=== PATIENT | female | born 1945 | race Caucasian/White ===

== ENCOUNTER → 2017-05-04 | Day surgery (SDC) | payer MEDICARE ==
[~2017-05-04] MED LIST: ALEV220T14 PO; ALPR0.25 PO; BUPIVACAINE HCL PF 0.5% 30 ML VIAL ONE; LEVO.075 PO; LEXA20TA PO; MONT10TA2 PO; PROPOFOL 200 MG/20 ML AMP IV ONE; TRIAMCINOLONE ACETONIDE 40 MG/ML VIAL I-ARTICULR ONE; methylPREDNISolone ACETATE 40 MG/ML VIAL I-ARTICULR ONE
--- NOTE | 2017-05-04 15:34 | M6 ---
cc: GEORGETTE BARTLETT M.D. DATE: 05/04/2017 DATE OF : 1945 PROCEDURE Fluoroscopically guided right sacroiliac joint injection. PROCEDURE NOTE History and physical was completed and signed. Consent was signed. Procedure site was marked. Medications were listed and reconciled. Pain score was recorded. Allergies were noted. Timeout was taken. Fluoroscopy time was recorded where applicable. Sedation was administered or directed by Dr. Bartlett. The patient was given oxygen. The patient was monitored by a registered nurse. Total procedure time was greater than 15 minutes. An IV was started, blood pressure cuff, pulse oximeter and EKG were applied. The patient was placed in the prone position on a Harsh table, sedated with small amounts of propofol titrated to effect. Vital signs were monitored and remained stable throughout the procedure. The sacral area was prepped with alcohol and 10% Betadine solution, draped with sterile drapes. Fluoroscopy was used shooting from medial to lateral to clearly visualize the posterior joint line of the right sacroiliac joint. A sterile 22-gauge, 5-inch needle was advanced into the joint under fluoroscopic guidance. There was negative aspiration for blood or any other type of fluid and the patient was given 2 mL of 0.5% Marcaine, 20 mg of Depo-Medrol, 20 mg of Kenalog. Following the procedure the patient was taken to the recovery room with stable vital signs, neurologically intact. She will be evaluated immediately and with follow-up to determine if she has a subjective decrease in her usual pain and a corresponding objective increase in her functional capabilities. W. MD ADRIANA Vernon/ARIANA /10:12 AM /3:31 PM
== END | disposition home or self-care (01) ==
LOC: PHSDC 08:08
PROVIDERS: ATTEND Pain Medicine Interventional Pain Medicine
DX: M12.88 Other specific arthropathies, not elsewhere classified, other specified site (principal); M54.16 Radiculopathy, lumbar region; F32.9 Major depressive disorder, single episode, unspecified; F41.9 Anxiety disorder, unspecified; J45.909 Unspecified asthma, uncomplicated; Z85.850 Personal history of malignant neoplasm of thyroid
CPT/HCPCS: 99152; G0260; J1030; J3301; 27096

== ENCOUNTER → 2017-10-04 | Day surgery (SDC) | payer MEDICARE ==
[~2017-10-04] MED LIST changes: -BUPIVACAINE HCL PF 0.5% 30 ML VIAL ONE; +LIOT50 PO; +MEPERIDINE HCL 25 MG/ML VIAL IV ONE; +SODIUM CHLORIDE 0.9% 10 ML VIAL ONE; +TEMA15CA PO; -TRIAMCINOLONE ACETONIDE 40 MG/ML VIAL I-ARTICULR ONE; +VIVE0.05 T-DERMAL; -methylPREDNISolone ACETATE 40 MG/ML VIAL I-ARTICULR ONE
--- NOTE | 2017-10-04 10:25 | M6 ---
cc: GEORGETTE BARTLETT M.D. DATE 10/04/2017 DATE OF 1945 PROCEDURE Fluoroscopically guided injection neurolytic substance right sacroiliac joint (3% phenol). PROCEDURE NOTE History and physical was completed and signed. Consent was signed. Procedure site was marked. Medications were listed and reconciled. Pain score was recorded. Allergies were noted. Time out was taken. Fluoroscopy time was recorded where applicable. Sedation was administered or directed by Dr. Bartlett. The patient was given oxygen. The patient was monitored by a registered nurse. Total procedure time was greater than 15 minutes. IV was started, blood pressure cuff, pulse oximeter and EKG were applied. The patient was placed in the prone position on a Harsh table sedated with small amounts of propofol titrated to effect. Vital signs were monitored and remained stable throughout the procedure. The sacral area was prepped with alcohol and 10% Betadine solution and draped with sterile drapes. Fluoroscopy was used shooting from medial to lateral to clearly visualize the posterior joint line of the right sacroiliac joint. A sterile 5-inch 22-gauge spinal needle was advanced into the joint under fluoroscopic guidance. There was negative aspiration for blood or any other type of fluid and the patient was given 1 mL of 3% phenol. Following this, the patient was taken to the recovery room with stable vital signs neurologically intact. She will be evaluated immediately and with followup to determine if she has a subjective decrease in the usual pain and a corresponding objective increase in her functional capabilities. W. MD ADRIANA Vernon/PEGGY /10:17 AM /10:21 AM
== END | disposition home or self-care (01) ==
LOC: PHSDC 08:20
PROVIDERS: ATTEND Pain Medicine Interventional Pain Medicine
DX: M54.5 Low back pain (principal)
CPT/HCPCS: 64640; 99152; J2175

== ENCOUNTER → 2017-10-11 | Day surgery (SDC) | payer MEDICARE ==
--- NOTE | 2017-10-11 10:47 | M6 ---
cc: GEORGETTE BARTLETT M.D. DATE: 10/11/2017 DATE OF : 1945 PROCEDURE Fluoroscopically guided injection neurolytic substance right sacroiliac joint (3% Phenol). PROCEDURE NOTE History and physical was completed and signed. Consent was signed. Procedure site was marked. Medications were listed and reconciled. Pain score was recorded. Allergies were noted. Timeout was taken. Fluoroscopy time was recorded where applicable. Sedation was administered or directed by Dr. Bartlett. The patient was given oxygen. The patient was monitored by a registered nurse. Total procedure time was greater than 15 minutes. An IV was started, blood pressure cuff, pulse oximeter and EKG were applied. The patient was placed in the prone position on a Harsh table, sedated with small amounts of propofol titrated to effect. Vital signs were monitored and remained stable throughout the procedure. The sacral area was prepped with alcohol and 10% Betadine solution, draped with sterile drapes. Fluoroscopy was used shooting from medial to lateral to clearly visualize the posterior joint line of the right sacroiliac joint. A sterile 5-inch, 22-gauge spinal needle was advanced into the joint under fluoroscopic guidance. There was negative aspiration for blood or any other type of fluid and the patient was given 1 mL of 3% Phenol. Following this the patient was taken to the recovery room with stable vital signs, neurologically intact. She will be evaluated immediately and with follow-up to determine if she has a subjective decrease in her usual pain and a corresponding objective increase in her functional capabilities. W. Reese Bartlett MD [facility]/ARIANA /9:33 AM /10:47 AM
== END | disposition home or self-care (01) ==
LOC: PHSDC 07:49
PROVIDERS: ATTEND Pain Medicine Interventional Pain Medicine
DX: M54.5 Low back pain (principal)
CPT/HCPCS: 64640; 99152; J2175